=== PATIENT | female | born 1940 | race Caucasian/White ===

== ENCOUNTER 2016-12-13 10:19 | Emergency (ER) | payer MEDICARE ==
[2016-12-13 10:30] VITALS: BP 138/62
--- NOTE | 2016-12-13 11:26 | RAD ---
INDICATION: Short of breath COMPARISON: None TECHNIQUE: PA and lateral dual-energy views were obtained. FINDINGS: Bones/Soft Tissues: There are no acute bony findings. There is right mastectomy with right axillary dissection Cardiomediastinal: The cardiomediastinal silhouette is normal. Lungs: There are no infiltrates. Pleura: There are no pleural effusions. Other: None IMPRESSION: NO ACTIVE DISEASE.
--- NOTE | 2016-12-13 11:43 | UC ---
Respiratory Complaint HPI - HPI Summary HPI Summary: cough x 2 weeks + sob, no nasal congestion , no fever no chest or palpitations - History of Current Complaint Chief Complaint: UCDizziness Stated Complaint: WEAK,SOB,CONGESTION Time Seen by Provider: 12/13/16 10:50 Hx Obtained From: Patient Onset/Duration: Gradual Onset, Lasting Weeks - 2, Still Present Timing: Constant Severity Initially: Moderate Severity Currently: Moderate Character: Cough: Nonproductive Aggravating Factors: Exertion, Deep Breaths Alleviating Factors: Bronchodilator Associated Signs And Symptoms: Positive: Dyspnea. Negative: Fever, Chills, Pleuritic Chest Pain, Wheezing, Hemoptysis, Dizziness, Calf Pain, Calf Swelling , Edema, URI, Nasal Congestion, Hoarseness, Sinus Discomfort - Allergies/Home Medications Allergies/Adverse Reactions: Allergies Allergy/AdvReac Type Severity Reaction Status Date / Time Amitriptyline Allergy DIZZINESS Verified 11/08/12 10:51 & FALLING Amoxicillin Allergy Rash Verified 11/08/12 10:51 Dexamethasone Allergy FACIAL Verified 11/08/12 10:51 RASH/TACHYCARDIAC Gabapentin Allergy Unknown Verified 12/13/16 10:31 Reaction Details Ibuprofen Allergy Nausea And Verified 12/13/16 10:31 Vomiting Levofloxacin [From Levaquin] Allergy STOMACH Verified 11/08/12 10:51 SENSITIVITY Metoclopramide [From Reglan] Allergy Nausea And Verified 12/13/16 10:31 Vomiting NSAIDs Allergy Nausea And Verified 12/13/16 10:31 Vomiting Prednisone Allergy TACHYCARDIA Verified 11/08/12 10:51 C/UPSET/ANX IOUS Home Medications: Home Medications Albuterol HFA INHALER* [Ventolin HFA Inhaler*] 2 puff INH Q6H PRN 12/13/16 [ History Confirmed 12/13/16] Ascorbic Acid TAB* [Vitamin C TAB*] 500 mg PO DAILY 12/13/16 [History Confirmed 12/13/16] Budesonide/Formote 80/4.5(NF) [Symbicort 80/4.5 (NF)] 1 puff INH BID 12/13/16 [ History Confirmed 12/13/16] Calcium 500 mg PO DAILY 12/13/16 [History Confirmed 12/13/16] Cimetidine [Cimetidine 200] 400 mg PO BID 12/13/16 [History Confirmed 12/13/16] DOXYcycline CAP(*) [DOXYcycline 100MG CAP(*)] 100 mg PO BID 12/13/16 [History Confirmed 12/13/16] Hydrocodone-Acetaminophen [Hydrocodone/Acetaminophen] 1 veronica PO DAILY 12/13/16 [ History Confirmed 12/13/16] LORazepam TAB(*) [Ativan 1 MG TAB (*)] 1 mg PO TID PRN 12/13/16 [History Confirmed 12/13/16] Lisinopril TAB* [Prinivil TAB*] 10 mg PO DAILY 12/13/16 [History Confirmed 12/13] Multivitamins/Minerals TAB* [Theragran/minerals TAB*] 1 tab PO DAILY 12/13/16 [ History Confirmed 12/13/16] Simvastatin [Zocor 5 MG-] 10 mg PO 1700 12/13/16 [History Confirmed 12/13/16] PMH/Surg Hx/FS Hx/Imm Hx Endocrine History Of: Denies: Diabetes Cardiovascular History Of: Reports: Hypertension - ALSO HIGH CHOLESTEROL Denies: Pacemaker/ICD Respiratory History Of: Reports: COPD Cancer History Of: Reports: Breast Cancer - Surgical History Surgical History: Yes Surgery Procedure, Year, and Place: 2000 PARTIAL GASTRIC DUE TO REFLUX, GALLBLADDER 1999,OOPHERECTOMY DUE TO CYST,1966&68 ,1972 BENIGN LUMPECTOMY,2001 EXCISIONAL [id number] WHICH RESULTED IN MASTECTOMY RT , RT SALINE BREAST IMPLANT,RT BREAST AUGMENTATION 2002; TRANSFLAP 2002;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 - Family History Known Family History: Negative: Diabetes - Social History Alcohol Use: None Substance Use Type: None Smoking Status (MU): Former Smoker Review of Systems Constitutional: Negative Skin: Negative Eyes: Negative ENT: Negative Respiratory: Cough Cardiovascular: Negative Gastrointestinal: Negative Genitourinary: Negative All Other Systems Reviewed And Are Negative: Yes Physical Exam Triage Information Reviewed: Yes Appearance: Well-Appearing, No Pain Distress, Well-Nourished Vital Signs: Initial Vital Signs Temp 99.4 F 12/13/16 10:26 Pulse 108 12/13/16 10:26 Resp 16 05/16/17 10:26 BP 138/62 12/13/16 10:26 Pulse Ox 100 12/13/16 10:26 Vital Signs Reviewed: Yes Eyes: Positive: Conjunctiva Clear ENT: Positive: Normal ENT inspection, Hearing grossly normal, Pharynx normal Neck exam: Normal Neck: Positive: Supple, Nontender, No Lymphadenopathy Respiratory: Positive: Decreased breath sounds Cardiovascular: Positive: RRR, No Murmur, Pulses Normal Abdominal Exam: Normal Skin Exam: Normal UC Diagnostic Evaluation - Laboratory O2 Sat by Pulse Oximetry: 100 Respiratory Course/Dx - Differential Dx/Diagnosis Provider Diagnoses: bronchitis. copd Discharge - Discharge Plan Condition: Stable Disposition: HOME Prescriptions: Cephalexin CAP* [Keflex CAP*] 500 mg PO TID #30 cap Patient Education Materials: Acute Bronchitis (ED), COPD (Chronic Obstructive Pulmonary Disease) (ED) Referrals: Dania Mukherjee MD [Primary Care Provider] - 2 Weeks
== END 2016-12-13 11:48 | disposition home or self-care (01) ==
LOC: UCCORT 10:19
DX: J44.9 Chronic obstructive pulmonary disease, unspecified (principal); Z88.1 Allergy status to other antibiotic agents; Z88.8 Allergy status to other drugs, medicaments and biological substances; I10 Essential (primary) hypertension; E78.00 Pure hypercholesterolemia, unspecified; Z85.3 Personal history of malignant neoplasm of breast; Z90.49 Acquired absence of other specified parts of digestive tract; Z87.891 Personal history of nicotine dependence
CPT/HCPCS: 71020; 93005; 99212; G0463

== ENCOUNTER 2017-04-11 14:21 | Emergency (ER) | payer MEDICARE ==
[2017-04-11 14:27] VITALS: BP 132/70
--- NOTE | 2017-04-11 14:43 | UC ---
Respiratory Complaint HPI - HPI Summary HPI Summary: cough x 7 day + chest congestion , nasal congestion, no fever , no chills, + wheezing and sob - History of Current Complaint Chief Complaint: UCRespiratory Stated Complaint: DIFFICULTY BREATHING Time Seen by Provider: 04/11/17 14:26 Hx Obtained From: Patient Onset/Duration: Gradual Onset, Lasting Days - 7, Still Present Timing: Constant Severity Initially: Moderate Severity Currently: Moderate Character: Cough: Nonproductive Aggravating Factors: Exertion, Deep Breaths Alleviating Factors: Bronchodilator Associated Signs And Symptoms: Positive: Dyspnea, Wheezing, URI, Nasal Congestion. Negative: Fever, Chills, Pleuritic Chest Pain - Allergies/Home Medications Allergies/Adverse Reactions: Allergies Allergy/AdvReac Type Severity Reaction Status Date / Time Amitriptyline Allergy DIZZINESS Verified 04/11/17 14:27 & FALLING Amoxicillin Allergy Rash Verified 04/11/17 14:27 Dexamethasone Allergy FACIAL Verified 04/11/17 14:27 RASH/TACHYCARDIAC Gabapentin Allergy Unknown Verified 04/11/17 14:27 Reaction Details Ibuprofen Allergy Nausea And Verified 04/11/17 14:27 Vomiting Levofloxacin [From Levaquin] Allergy STOMACH Verified 04/11/17 14:27 SENSITIVITY Metoclopramide [From Reglan] Allergy Nausea And Verified 04/11/17 14:27 Vomiting NSAIDs Allergy Nausea And Verified 04/11/17 14:27 Vomiting Prednisone Allergy TACHYCARDIA Verified 04/11/17 14:27 C/UPSET/ANX IOUS PMH/Surg Hx/FS Hx/Imm Hx Respiratory History: COPD, Bronchitis - Surgical History Surgical History: Yes Surgery Procedure, Year, and Place: 2000 PARTIAL GASTRIC DUE TO REFLUX, GALLBLADDER 1999,OOPHERECTOMY DUE TO CYST,1966&68 ,1973 BENIGN LUMPECTOMY,2002 EXCISIONAL [id number] WHICH RESULTED IN MASTECTOMY RT , RT SALINE BREAST IMPLANT,RT BREAST AUGMENTATION 2002; TRANSFLAP 2002;T-CELL LYMPHOMA FOREHEAD [id number];UMBILICAL HERNIA REPAIR W/MESH 2002; OVARIES REMOVED 2004; DX W/CHAUNCEY ESOPHOGUS NO SX NO TREATMENT--PT IS SCOPED EVERY YEAR TO CHECK.; HX OF BULDGING DISC LEVEL L3-L4; HX OF SYNCOPE W/FALLING. - Family History Known Family History: Negative: Diabetes - Social History Alcohol Use: None Substance Use Type: None Smoking Status (MU): Former Smoker Review of Systems Constitutional: Negative Skin: Negative Eyes: Negative ENT: Negative Respiratory: Shortness Of Breath, Cough Cardiovascular: Negative All Other Systems Reviewed And Are Negative: Yes Physical Exam Triage Information Reviewed: Yes Appearance: Well-Appearing, No Pain Distress, Well-Nourished Vital Signs: Initial Vital Signs Temp 99.0 F 04/11/17 14:23 Pulse 100 04/11/17 14:23 Resp 16 04/11/17 14:23 BP 132/70 04/11/17 14:23 Pulse Ox 96 04/11/17 14:23 Vital Signs Reviewed: Yes Eye Exam: Normal Eyes: Positive: Conjunctiva Clear, Conjunctiva Inflamed ENT: Positive: Normal ENT inspection, Hearing grossly normal, Pharynx normal Dental: Positive: Percussion Tenderness @, Gross Decay/Caries @ Respiratory: Positive: Chest non-tender, Lungs clear, Normal breath sounds, No respiratory distress, No accessory muscle use. Negative: Respiratory distress, Decreased breath sounds UC Diagnostic Evaluation - Laboratory O2 Sat by Pulse Oximetry: 96 Respiratory Course/Dx - Differential Dx/Diagnosis Provider Diagnoses: bronchitis Discharge - Discharge Plan Condition: Stable Disposition: HOME Prescriptions: Cephalexin CAP* [Keflex CAP*] 500 mg PO TID #30 cap Patient Education Materials: Acute Bronchitis (ED) Referrals: Dania Mukherjee MD [Primary Care Provider] - 7 Days
== END 2017-04-11 14:50 | disposition home or self-care (01) ==
LOC: UCCORT 14:21
DX: J40 Bronchitis, not specified as acute or chronic (principal); Z88.6 Allergy status to analgesic agent; Z88.1 Allergy status to other antibiotic agents; Z88.8 Allergy status to other drugs, medicaments and biological substances; Z87.891 Personal history of nicotine dependence
CPT/HCPCS: 99212; G0463